=== PATIENT | female | born 1960 | race Caucasian/White ===

== ENCOUNTER 2018-01-27 02:55 | Emergency (ER) | payer OTHER ==
[~2018-01-27] VITALS: Ht 175.3 cm; Wt 78.0 kg
[2018-01-27] MEDS ORDERED: ONDANSETRON 2MG/ML, 2ML ONE (03:06)
[2018-01-27 03:25] LABS: BASOPHILS % (AUTO) 0 % (0-1); EOSINOPHILS % (AUTO) 2 % (1-7); LYMPHOCYTES # (AUTO) 0.81 x10^3/uL (1-3.4); LYMPHOCYTES % (AUTO) 10 % (22-44); MD NO; MEAN CORPUSCULAR HEMOGLOBIN 31.6 pg (27.0-34.8); MEAN CORPUSCULAR HGB CONC 33.8 g/dL (32.4-35.8); MEAN CORPUSCULAR VOLUME 93.5 fL (80-100); MEAN PLATELET VOLUME 8.7 fL (7.4-10.4); MONOCYTES # (AUTO) 0.42 x10^3/uL (0.2-0.8); MONOCYTES % (AUTO) 5 % (2-9); NEUTROPHILS # (AUTO) 6.93 x10^3/uL (1.8-6.8); NEUTROPHILS % (AUTO) 83 % (42-75); PLATELET COUNT 195 x10^3/uL (130-400); RED BLOOD COUNT 4.01 x10^6/uL (3.82-5.3); RED CELL DISTRIBUTION WIDTH 12.8 % (9.6-15.2)
[2018-01-27] MEDS ORDERED: SODIUM CHLORIDE FLUSH 10ML SYR IVF ONE (03:30)
[2018-01-27] MEDS ORDERED: SODIUM CHLORIDE 0.9% 1,000ML IVBOLUS ONE (03:30)
[2018-01-27] MEDS ORDERED: ONDANSETRON 2MG/ML, 2ML IVPush ONE (03:30)
[2018-01-27 03:34] LABS: ALANINE AMINOTRANSFERASE 31 U/L (12-78); ALBUMIN 3.3 g/dL (3.4-5.0); ANION GAP 4 mmol/L (5-15); CALCIUM 7.9 mg/dL (8.5-10.1); CHLORIDE 110 mmol/L (98-107); CREATININE 0.71 mg/dL (0.55-1.02)
[2018-01-27 03:39] LABS: ALKALINE PHOSPHATASE 62 U/L (45-117); BILIRUBIN,TOTAL 0.3 mg/dL (0.2-1.0); TOTAL PROTEIN 6.4 g/dL (6.4-8.2); TROPONIN I < 0.015 ng/mL (0.000-0.045)
[2018-01-27] MEDS ORDERED: PROMETHAZINE 25 MG/ML, 1ML IM ONE (04:00)
[2018-01-27] MEDS ORDERED: PROMETHAZINE 25 MG/ML, 1ML ONE (04:02)
[2018-01-27 04:53] LABS: MICROSCOPIC NOT IND
[2018-01-27 04:58] LABS: CULTURE INDICATED? NO
[2018-01-27] MEDS ORDERED: KETOROLAC 30 MG/1 ML ONE (05:26)
[2018-01-27] MEDS ORDERED: KETOROLAC 30 MG/1 ML IVPush ONE (05:30)
[2018-01-27 05:43] VITALS: BP 122/82
== END 2018-01-27 05:57 | disposition home or self-care (01) ==
LOC: ED 03:11
DX: R55 Syncope and collapse (principal); R11.2 Nausea with vomiting, unspecified; E86.0 Dehydration
CPT/HCPCS: 36415; 71045; 80053; 81003; 84484; 85025; 93005; 96361; 96372; 96374; 96375; 99285; J1885; J2405; J2550; J7030

== ENCOUNTER → 2018-07-27 | Outpatient (CLI) | payer OTHER | END | disposition home or self-care (01) | LOC: CFH 10:00 | PROVIDERS: ATTEND Nurse Practitioner Primary Care | DX: Z12.31 Encounter for screening mammogram for malignant neoplasm of breast (principal) | CPT/HCPCS: 77063; 77067 ==

== ENCOUNTER 2019-11-08 13:54 | Outpatient (CLI) | payer OTHER | END 2019-11-08 23:59 | disposition home or self-care (01) | LOC: CFH 13:54 | PROVIDERS: ATTEND Internal Medicine | DX: Z12.31 Encounter for screening mammogram for malignant neoplasm of breast (principal) | CPT/HCPCS: 77063; 77067 ==